=== PATIENT | male | born 1980 | race African-American/Black ===

== ENCOUNTER 2023-11-27 15:13 | Emergency (ER) | payer SELFPAY ==
[~2023-11-27] VITALS: Ht 182.9 cm; Wt 100.0 kg
[2023-11-27 15:23] VITALS: BP 128/86; PULSE 92; TEMP 98.2; O2SAT 100
[2023-11-27] MEDS ORDERED: METF-874 MT (16:36)
[2023-11-27] MEDS ORDERED: INSU300I SQ (16:36)
[2023-11-27 16:50] VITALS: RESP 17
== END 2023-11-27 17:41 | disposition home or self-care (01) ==
LOC: ER 15:13
DX: E11.9 Type 2 diabetes mellitus without complications (principal); Z76.0 Encounter for issue of repeat prescription
CPT/HCPCS: 99283